=== PATIENT | female | born 1975 | race African-American/Black ===

== ENCOUNTER 2022-06-14 17:17 | Inpatient (IN) | payer OTHER ==
[2022-06-14 21:44] VITALS: BMI 25.7
[2022-06-14] MEDS ORDERED: LOPERAMIDE HCL 2 MG CAPSULE PO PRN (22:59)
[2022-06-14] MEDS ORDERED: guaiFENesin 200 MG/10 ML 10 ML UNIT-DOSE CUPS PO PRN (22:59)
[2022-06-14] MEDS ORDERED: MAGNESIUM CITRATE 300 ML BOTTLE PO PRN (22:59)
[2022-06-14] MEDS ORDERED: NICOTINE POLACRILEX 2 MG GUM BC PRN (22:59)
[2022-06-14] MEDS ORDERED: P-EPHED 60MG/TRIPROLIDI 2.5MG TABLET PO PRN (22:59)
[2022-06-14] MEDS ORDERED: MAG HYDROX/AL HYDROX/SIMETH 30 ML UNIT-DOSE CUP PO PRN (22:59)
[2022-06-15] MEDS: MELATONIN 5 MG TABLETS PO SCH ×2 (04:43→21:03)
[2022-06-15] MEDS: NICOTINE 14 MG/24 HOURS TOPICAL PATCH TD SCH (10:09)
[2022-06-15] MEDS: PRENATAL VITAMINS W/ FOLIC ACID TABLET (FP) PO SCH (10:09)
[2022-06-15] MEDS: hydrOXYzine PAMOATE 25 MG CAPSULE (FP) PO PRN (10:10)
[2022-06-15] MEDS ORDERED: methaDONE HCL 10 MG TABLET PO ONE (13:54)
[2022-06-15] MEDS ORDERED: methaDONE 40 MG, methaDONE 20 MG PO SCH (14:15)
[2022-06-15] MEDS ORDERED: TUBERCULIN PPD 5 TU/0.1ML VIAL ID ONE (16:33)
[2022-06-15] MEDS: QUEtiapine FUMARATE 100 MG TABLET (FP) PO SCH (21:03)
[2022-06-15] MEDS: THIAMINE HCL 100 MG TABLET (FP) PO SCH (21:03)
[2022-06-15 21:35] LABS: EPI CELLS 9 /uL (0-25.1); HYALINE CASTS 0 /uL (0-3.1); PH,URINE 7.5 (5.0-8.0); URINE APPEARANCE CLEAR; URINE BACTERIA 192 /uL (0-1359); URINE BILIRUBIN NEGATIVE (NEGATIVE); URINE COLOR YELLOW; URINE GLUCOSE (UA) NEGATIVE (NEGATIVE); URINE KETONE NEGATIVE (NEGATIVE); URINE LEUK ESTERASE TRACE (NEGATIVE); URINE NITRITE NEGATIVE (NEGATIVE); URINE PROTEIN NEGATIVE (NEGATIVE); URINE RBC 10 /uL (0-23.9); URINE UROBILINOGEN 0.2 mg/dL (0.2-1.0); URINE WBC 16 /uL (0-25.8)
[2022-06-16] MEDS ORDERED: methaDONE HCL 10 MG TABLET PO SCH (06:00)
[2022-06-16] MEDS: METHADONE PO SCH (06:58)
[2022-06-16] MEDS ORDERED: QUEtiapine FUMARATE 50 MG TABLET PO SCH (10:00)
[2022-06-16] MEDS: NICOTINE 14 MG/24 HOURS TOPICAL PATCH TD SCH (10:19)
[2022-06-16] MEDS: PRENATAL VITAMINS W/ FOLIC ACID TABLET (FP) PO SCH (10:19)
[2022-06-16] MEDS: hydrOXYzine PAMOATE 25 MG CAPSULE (FP) PO PRN (10:20)
[2022-06-16 11:00] LABS: HEMATOCRIT 33.3 % (32.4-45.2); HEMOGLOBIN 10.9 GM/dL (10.7-15.3); MCH 28.8 pg (25.7-33.7); MCHC 32.9 g/dl (32.0-36.0); MEAN CELL VOLUME 87.7 fl (80-96); MEAN PLT VOLUME 9.2 fl (7.5-11.1); PLATELET COUNT 191 10^3/uL (134-434); RBC 3.79 M/mm3 (3.60-5.2); RDW 14.6 % (11.6-15.6); WHITE BLOOD COUNT 5.1 K/mm3 (4.0-10.0)
[2022-06-16 11:18] LABS: ALBUMIN 3.5 g/dl (3.4-5.0); BLOOD UREA NITROGEN 10.8 mg/dL (7-18)
[2022-06-16 11:22] LABS: CREATININE 0.7 mg/dL (0.55-1.3)
[2022-06-16 11:24] LABS: BILIRUBIN,TOTAL 0.2 mg/dL (0.2-1); TOT PROT 6.7 g/dl (6.4-8.2)
[2022-06-16 11:31] LABS: SYPHILIS W/ RPR CONF NON-REACTIVE (NONREACTIVE)
[2022-06-16 11:59] LABS: HIV INTERPRETATION NEGATIVE (NEGATIVE)
[2022-06-16] MEDS ORDERED: PNEUMOC 20-VAL CONJ-DIP CRM/PF 0.5 ML SYRINGE IM ONE (12:00)
[2022-06-16] MEDS: IBUPROFEN 400 MG TABLET (FP) PO PRN (19:39)
[2022-06-16] MEDS: THIAMINE HCL 100 MG TABLET (FP) PO SCH (21:55)
[2022-06-16] MEDS: MELATONIN 5 MG TABLETS PO SCH (21:55)
[2022-06-16] MEDS: QUEtiapine FUMARATE 100 MG TABLET (FP) PO SCH (21:55)
[2022-06-17] MEDS: METHADONE PO SCH (06:15)
[2022-06-17] MEDS: PRENATAL VITAMINS W/ FOLIC ACID TABLET (FP) PO SCH (11:01)
[2022-06-17] MEDS: NICOTINE 14 MG/24 HOURS TOPICAL PATCH TD SCH (11:01)
[2022-06-17] MEDS: hydrOXYzine PAMOATE 25 MG CAPSULE (FP) PO PRN (11:02)
[2022-06-17] MEDS: MELATONIN 5 MG TABLETS PO SCH (21:34)
[2022-06-17] MEDS: THIAMINE HCL 100 MG TABLET (FP) PO SCH (21:34)
[2022-06-17] MEDS: QUEtiapine FUMARATE 100 MG TABLET (FP) PO SCH (21:34)
[2022-06-18] MEDS ORDERED: methaDONE 80 MG, methaDONE 20 MG PO SCH (06:00)
[2022-06-18] MEDS: NICOTINE 14 MG/24 HOURS TOPICAL PATCH TD SCH (10:44)
[2022-06-18] MEDS: PRENATAL VITAMINS W/ FOLIC ACID TABLET (FP) PO SCH (10:44)
[2022-06-18] MEDS: hydrOXYzine PAMOATE 25 MG CAPSULE (FP) PO PRN (10:46)
[2022-06-18] MEDS: QUEtiapine FUMARATE 200 MG TABLET PO SCH (21:20)
[2022-06-18] MEDS: MELATONIN 5 MG TABLETS PO SCH (21:20)
[2022-06-18] MEDS: THIAMINE HCL 100 MG TABLET (FP) PO SCH (21:20)
[2022-06-19] MEDS ORDERED: methaDONE HCL 40 MG DISPERSABLE TABLET PO SCH (06:00)
[2022-06-19] MEDS: methaDONE 40 MG, methaDONE 20 MG PO SCH (07:13)
[2022-06-19] MEDS: QUEtiapine FUMARATE 50 MG TABLET PO SCH (10:35)
[2022-06-19] MEDS: NICOTINE 14 MG/24 HOURS TOPICAL PATCH TD SCH (10:35)
[2022-06-19] MEDS: PRENATAL VITAMINS W/ FOLIC ACID TABLET (FP) PO SCH (10:35)
[2022-06-19] MEDS: MAGNESIUM HYDROX 2400MG/30ML ORAL SUSPENSION 30 ML CUP PO PRN (17:23)
[2022-06-19] MEDS: QUEtiapine FUMARATE 200 MG TABLET PO SCH (21:34)
[2022-06-19] MEDS: THIAMINE HCL 100 MG TABLET (FP) PO SCH (21:34)
[2022-06-19] MEDS: MELATONIN 5 MG TABLETS PO SCH (21:34)
[2022-06-20] MEDS: methaDONE 40 MG, methaDONE 20 MG PO SCH (06:25)
[2022-06-20] MEDS: PRENATAL VITAMINS W/ FOLIC ACID TABLET (FP) PO SCH (10:31)
[2022-06-20] MEDS: NICOTINE 14 MG/24 HOURS TOPICAL PATCH TD SCH (10:33)
[2022-06-20] MEDS: QUEtiapine FUMARATE 50 MG TABLET PO SCH (10:34)
[2022-06-20] MEDS ORDERED: BISACODYL 5 MG TABLET.DR (FP) PO ONE (20:35)
[2022-06-20] MEDS: MELATONIN 5 MG TABLETS PO SCH (21:51)
[2022-06-20] MEDS: THIAMINE HCL 100 MG TABLET (FP) PO SCH (21:51)
[2022-06-20] MEDS: QUEtiapine FUMARATE 200 MG TABLET PO SCH (21:51)
[2022-06-21] MEDS: methaDONE 40 MG, methaDONE 20 MG PO SCH (07:14)
[2022-06-21] MEDS: PRENATAL VITAMINS W/ FOLIC ACID TABLET (FP) PO SCH (10:37)
[2022-06-21] MEDS: NICOTINE 14 MG/24 HOURS TOPICAL PATCH TD SCH (10:37)
[2022-06-21] MEDS: QUEtiapine FUMARATE 50 MG TABLET PO SCH (10:37)
[2022-06-21] MEDS: MAGNESIUM HYDROX 2400MG/30ML ORAL SUSPENSION 30 ML CUP PO PRN (10:38)
[2022-06-21] MEDS: IBUPROFEN 400 MG TABLET (FP) PO PRN (12:04)
[2022-06-21] MEDS: THIAMINE HCL 100 MG TABLET (FP) PO SCH (21:18)
[2022-06-21] MEDS: QUEtiapine FUMARATE 200 MG TABLET PO SCH (21:19)
[2022-06-21] MEDS: MELATONIN 5 MG TABLETS PO SCH (21:19)
[2022-06-22] MEDS: methaDONE 40 MG, methaDONE 20 MG PO SCH (06:41)
[2022-06-22] MEDS: PRENATAL VITAMINS W/ FOLIC ACID TABLET (FP) PO SCH (10:23)
[2022-06-22] MEDS: NICOTINE 14 MG/24 HOURS TOPICAL PATCH TD SCH (10:24)
[2022-06-22] MEDS: QUEtiapine FUMARATE 50 MG TABLET PO SCH (10:25)
[2022-06-22] MEDS: THIAMINE HCL 100 MG TABLET (FP) PO SCH (21:37)
[2022-06-22] MEDS: MELATONIN 5 MG TABLETS PO SCH (21:37)
[2022-06-22] MEDS: QUEtiapine FUMARATE 200 MG TABLET PO SCH (21:37)
[2022-06-23] MEDS: methaDONE 40 MG, methaDONE 20 MG PO SCH (06:23)
[2022-06-23] MEDS: PRENATAL VITAMINS W/ FOLIC ACID TABLET (FP) PO SCH (11:13)
[2022-06-23] MEDS: hydrOXYzine PAMOATE 25 MG CAPSULE (FP) PO PRN (11:14)
[2022-06-23] MEDS: QUEtiapine FUMARATE 50 MG TABLET PO SCH (11:14)
[2022-06-23] MEDS: NICOTINE 14 MG/24 HOURS TOPICAL PATCH TD SCH (11:16)
[2022-06-23] MEDS: MAGNESIUM HYDROX 2400MG/30ML ORAL SUSPENSION 30 ML CUP PO PRN (15:36)
[2022-06-23] MEDS: MELATONIN 5 MG TABLETS PO SCH (21:30)
[2022-06-23] MEDS: QUEtiapine FUMARATE 200 MG TABLET PO SCH (21:30)
[2022-06-23] MEDS: THIAMINE HCL 100 MG TABLET (FP) PO SCH (21:30)
[2022-06-24] MEDS: methaDONE 40 MG, methaDONE 20 MG PO SCH (05:58)
[2022-06-24] MEDS: QUEtiapine FUMARATE 50 MG TABLET PO SCH (10:28)
[2022-06-24] MEDS: NICOTINE 14 MG/24 HOURS TOPICAL PATCH TD SCH (10:28)
[2022-06-24] MEDS: PRENATAL VITAMINS W/ FOLIC ACID TABLET (FP) PO SCH (10:28)
[2022-06-24] MEDS: MELATONIN 5 MG TABLETS PO SCH (21:51)
[2022-06-24] MEDS: QUEtiapine FUMARATE 300 MG TABLET PO SCH (21:52)
[2022-06-24] MEDS: THIAMINE HCL 100 MG TABLET (FP) PO SCH (21:52)
[2022-06-25] MEDS: methaDONE 40 MG, methaDONE 20 MG PO SCH (07:00)
[2022-06-25] MEDS: NICOTINE 14 MG/24 HOURS TOPICAL PATCH TD SCH (10:20)
[2022-06-25] MEDS: QUEtiapine FUMARATE 100 MG TABLET (FP) PO SCH (10:20)
[2022-06-25] MEDS: PRENATAL VITAMINS W/ FOLIC ACID TABLET (FP) PO SCH (10:20)
[2022-06-25] MEDS: NICOTINE 10 MG CARTRIDGE (INHALER) IH PRN (16:15)
[2022-06-25] MEDS: MELATONIN 5 MG TABLETS PO SCH (21:22)
[2022-06-25] MEDS: THIAMINE HCL 100 MG TABLET (FP) PO SCH (21:23)
[2022-06-25] MEDS: QUEtiapine FUMARATE 300 MG TABLET PO SCH (21:23)
[2022-06-26] MEDS: methaDONE 40 MG, methaDONE 20 MG PO SCH (06:14)
[2022-06-26] MEDS: QUEtiapine FUMARATE 100 MG TABLET (FP) PO SCH (10:39)
[2022-06-26] MEDS: PRENATAL VITAMINS W/ FOLIC ACID TABLET (FP) PO SCH (10:39)
[2022-06-26] MEDS: NICOTINE 14 MG/24 HOURS TOPICAL PATCH TD SCH (10:39)
[2022-06-26] MEDS: NICOTINE 10 MG CARTRIDGE (INHALER) IH PRN ×2 (10:40→14:53)
[2022-06-26] MEDS: hydrOXYzine PAMOATE 25 MG CAPSULE (FP) PO PRN (10:40)
[2022-06-26] MEDS ORDERED: DOCUSATE SODIUM 100 MG CAPSULE (FP) PO ONE (11:55)
[2022-06-26] MEDS: DOCUSATE SODIUM 100 MG CAPSULE (FP) PO SCH ×2 (13:07→22:15)
[2022-06-26] MEDS: THIAMINE HCL 100 MG TABLET (FP) PO SCH (22:15)
[2022-06-26] MEDS: QUEtiapine FUMARATE 300 MG TABLET PO SCH (22:15)
[2022-06-26] MEDS: MELATONIN 5 MG TABLETS PO SCH (22:16)
[2022-06-27] MEDS: DOCUSATE SODIUM 100 MG CAPSULE (FP) PO SCH ×3 (06:05→21:48)
[2022-06-27] MEDS: methaDONE 40 MG, methaDONE 20 MG PO SCH (06:05)
[2022-06-27] MEDS: QUEtiapine FUMARATE 100 MG TABLET (FP) PO SCH (10:42)
[2022-06-27] MEDS: ACETAMINOPHEN 325 MG TABLET (FP) PO PRN (10:42)
[2022-06-27] MEDS: hydrOXYzine PAMOATE 25 MG CAPSULE (FP) PO PRN (10:42)
[2022-06-27] MEDS: PRENATAL VITAMINS W/ FOLIC ACID TABLET (FP) PO SCH (10:42)
[2022-06-27] MEDS: NICOTINE 14 MG/24 HOURS TOPICAL PATCH TD SCH (10:43)
[2022-06-27] MEDS: NICOTINE 10 MG CARTRIDGE (INHALER) IH PRN ×3 (10:44→21:47)
[2022-06-27] MEDS: MELATONIN 5 MG TABLETS PO SCH (21:48)
[2022-06-27] MEDS: QUEtiapine FUMARATE 300 MG TABLET PO SCH (21:48)
[2022-06-27] MEDS: THIAMINE HCL 100 MG TABLET (FP) PO SCH (21:48)
[2022-06-28] MEDS: DOCUSATE SODIUM 100 MG CAPSULE (FP) PO SCH ×3 (06:55→21:45)
[2022-06-28] MEDS: methaDONE 40 MG, methaDONE 20 MG PO SCH (06:55)
[2022-06-28] MEDS: NICOTINE 14 MG/24 HOURS TOPICAL PATCH TD SCH (10:59)
[2022-06-28] MEDS: QUEtiapine FUMARATE 100 MG TABLET (FP) PO SCH (10:59)
[2022-06-28] MEDS: PRENATAL VITAMINS W/ FOLIC ACID TABLET (FP) PO SCH (10:59)
[2022-06-28] MEDS: NICOTINE 10 MG CARTRIDGE (INHALER) IH PRN ×2 (11:00→14:40)
[2022-06-28] MEDS: hydrOXYzine PAMOATE 25 MG CAPSULE (FP) PO PRN (11:01)
[2022-06-28] MEDS: METHOCARBAMOL 500 MG TABLET PO PRN (14:40)
[2022-06-28] MEDS: QUEtiapine FUMARATE 300 MG TABLET PO SCH (21:45)
[2022-06-28] MEDS: THIAMINE HCL 100 MG TABLET (FP) PO SCH (21:45)
[2022-06-28] MEDS: MELATONIN 5 MG TABLETS PO SCH (21:46)
[2022-06-29] MEDS: NICOTINE 10 MG CARTRIDGE (INHALER) IH PRN ×4 (06:09→21:59)
[2022-06-29] MEDS: methaDONE 40 MG, methaDONE 20 MG PO SCH (06:10)
[2022-06-29] MEDS: DOCUSATE SODIUM 100 MG CAPSULE (FP) PO SCH ×3 (06:11→21:59)
[2022-06-29] MEDS: PRENATAL VITAMINS W/ FOLIC ACID TABLET (FP) PO SCH (10:41)
[2022-06-29] MEDS: NICOTINE 14 MG/24 HOURS TOPICAL PATCH TD SCH (10:42)
[2022-06-29] MEDS: QUEtiapine FUMARATE 100 MG TABLET (FP) PO SCH (10:42)
[2022-06-29] MEDS: METHOCARBAMOL 500 MG TABLET PO PRN (12:03)
[2022-06-29] MEDS: IBUPROFEN 400 MG TABLET (FP) PO PRN (14:21)
[2022-06-29] MEDS: MELATONIN 5 MG TABLETS PO SCH (21:59)
[2022-06-29] MEDS: QUEtiapine FUMARATE 300 MG TABLET PO SCH (21:59)
[2022-06-29] MEDS: THIAMINE HCL 100 MG TABLET (FP) PO SCH (21:59)
[2022-06-29] MEDS: hydrOXYzine PAMOATE 25 MG CAPSULE (FP) PO PRN (21:59)
[2022-06-30] MEDS: DOCUSATE SODIUM 100 MG CAPSULE (FP) PO SCH ×3 (06:01→21:57)
[2022-06-30] MEDS: methaDONE 40 MG, methaDONE 20 MG PO SCH (06:01)
[2022-06-30 07:32] VITALS: RESP 18
[2022-06-30] MEDS: NICOTINE 14 MG/24 HOURS TOPICAL PATCH TD SCH (10:28)
[2022-06-30] MEDS: PRENATAL VITAMINS W/ FOLIC ACID TABLET (FP) PO SCH (10:28)
[2022-06-30] MEDS: QUEtiapine FUMARATE 100 MG TABLET (FP) PO SCH (10:28)
[2022-06-30] MEDS: NICOTINE 10 MG CARTRIDGE (INHALER) IH PRN ×3 (10:29→21:58)
[2022-06-30] MEDS: METHOCARBAMOL 500 MG TABLET PO PRN (10:29)
[2022-06-30] MEDS: ACETAMINOPHEN 325 MG TABLET (FP) PO PRN (21:57)
[2022-06-30] MEDS: QUEtiapine FUMARATE 300 MG TABLET PO SCH (21:57)
[2022-06-30] MEDS: THIAMINE HCL 100 MG TABLET (FP) PO SCH (21:57)
[2022-06-30] MEDS: MELATONIN 5 MG TABLETS PO SCH (21:58)
[2022-07-01] MEDS: DOCUSATE SODIUM 100 MG CAPSULE (FP) PO SCH ×3 (07:07→21:46)
[2022-07-01] MEDS: methaDONE 40 MG, methaDONE 20 MG PO SCH (07:07)
[2022-07-01] MEDS: PRENATAL VITAMINS W/ FOLIC ACID TABLET (FP) PO SCH (10:58)
[2022-07-01] MEDS: QUEtiapine FUMARATE 100 MG TABLET (FP) PO SCH (10:58)
[2022-07-01] MEDS: NICOTINE 14 MG/24 HOURS TOPICAL PATCH TD SCH (10:58)
[2022-07-01] MEDS: hydrOXYzine PAMOATE 25 MG CAPSULE (FP) PO PRN ×2 (10:59→21:46)
[2022-07-01] MEDS: METHOCARBAMOL 500 MG TABLET PO PRN (10:59)
[2022-07-01] MEDS: NICOTINE 10 MG CARTRIDGE (INHALER) IH PRN ×3 (10:59→20:16)
[2022-07-01] MEDS: MELATONIN 5 MG TABLETS PO SCH (21:46)
[2022-07-01] MEDS: QUEtiapine FUMARATE 300 MG TABLET PO SCH (21:46)
[2022-07-01] MEDS: THIAMINE HCL 100 MG TABLET (FP) PO SCH (21:46)
[2022-07-02] MEDS: DOCUSATE SODIUM 100 MG CAPSULE (FP) PO SCH ×3 (06:26→21:39)
[2022-07-02] MEDS: methaDONE 40 MG, methaDONE 20 MG PO SCH (06:26)
[2022-07-02] MEDS: PRENATAL VITAMINS W/ FOLIC ACID TABLET (FP) PO SCH (10:27)
[2022-07-02] MEDS: NICOTINE 14 MG/24 HOURS TOPICAL PATCH TD SCH (10:27)
[2022-07-02] MEDS: QUEtiapine FUMARATE 100 MG TABLET (FP) PO SCH (10:27)
[2022-07-02] MEDS: hydrOXYzine PAMOATE 25 MG CAPSULE (FP) PO PRN (10:28)
[2022-07-02] MEDS: METHOCARBAMOL 500 MG TABLET PO PRN (10:28)
[2022-07-02] MEDS: NICOTINE 10 MG CARTRIDGE (INHALER) IH PRN ×4 (10:29→20:15)
[2022-07-02] MEDS: QUEtiapine FUMARATE 300 MG TABLET PO SCH (21:39)
[2022-07-02] MEDS: MELATONIN 5 MG TABLETS PO SCH (21:39)
[2022-07-02] MEDS: THIAMINE HCL 100 MG TABLET (FP) PO SCH (21:40)
[2022-07-03] MEDS: methaDONE 40 MG, methaDONE 20 MG PO SCH (06:27)
[2022-07-03] MEDS: DOCUSATE SODIUM 100 MG CAPSULE (FP) PO SCH ×3 (06:27→21:38)
[2022-07-03] MEDS: NICOTINE 10 MG CARTRIDGE (INHALER) IH PRN ×4 (06:29→20:25)
[2022-07-03] MEDS: PRENATAL VITAMINS W/ FOLIC ACID TABLET (FP) PO SCH (10:53)
[2022-07-03] MEDS: NICOTINE 14 MG/24 HOURS TOPICAL PATCH TD SCH (10:53)
[2022-07-03] MEDS: QUEtiapine FUMARATE 100 MG TABLET (FP) PO SCH (10:53)
[2022-07-03] MEDS: METHOCARBAMOL 500 MG TABLET PO PRN ×2 (10:54→21:38)
[2022-07-03] MEDS: MAGNESIUM HYDROX 2400MG/30ML ORAL SUSPENSION 30 ML CUP PO PRN (14:35)
[2022-07-03] MEDS: THIAMINE HCL 100 MG TABLET (FP) PO SCH (21:38)
[2022-07-03] MEDS: MELATONIN 5 MG TABLETS PO SCH (21:38)
[2022-07-03] MEDS: QUEtiapine FUMARATE 300 MG TABLET PO SCH (21:38)
[2022-07-04] MEDS: methaDONE 40 MG, methaDONE 20 MG PO SCH (06:01)
[2022-07-04] MEDS: DOCUSATE SODIUM 100 MG CAPSULE (FP) PO SCH ×3 (06:01→21:51)
[2022-07-04] MEDS: NICOTINE 10 MG CARTRIDGE (INHALER) IH PRN ×5 (06:02→21:52)
[2022-07-04] MEDS: PRENATAL VITAMINS W/ FOLIC ACID TABLET (FP) PO SCH (10:25)
[2022-07-04] MEDS: NICOTINE 14 MG/24 HOURS TOPICAL PATCH TD SCH (10:26)
[2022-07-04] MEDS: QUEtiapine FUMARATE 100 MG TABLET (FP) PO SCH (10:26)
[2022-07-04] MEDS: METHOCARBAMOL 500 MG TABLET PO PRN (10:29)
[2022-07-04] MEDS: hydrOXYzine PAMOATE 25 MG CAPSULE (FP) PO PRN (10:29)
[2022-07-04] MEDS: MELATONIN 5 MG TABLETS PO SCH (21:52)
[2022-07-04] MEDS: THIAMINE HCL 100 MG TABLET (FP) PO SCH (21:52)
[2022-07-04] MEDS: QUEtiapine FUMARATE 300 MG TABLET PO SCH (21:52)
[2022-07-05] MEDS: methaDONE 40 MG, methaDONE 20 MG PO SCH (06:20)
[2022-07-05] MEDS: DOCUSATE SODIUM 100 MG CAPSULE (FP) PO SCH ×3 (06:21→21:50)
[2022-07-05] MEDS: NICOTINE 10 MG CARTRIDGE (INHALER) IH PRN ×5 (06:22→21:48)
[2022-07-05] MEDS: NICOTINE 14 MG/24 HOURS TOPICAL PATCH TD SCH (10:29)
[2022-07-05] MEDS: PRENATAL VITAMINS W/ FOLIC ACID TABLET (FP) PO SCH (10:29)
[2022-07-05] MEDS: QUEtiapine FUMARATE 100 MG TABLET (FP) PO SCH (10:29)
[2022-07-05] MEDS: METHOCARBAMOL 500 MG TABLET PO PRN ×2 (10:30→21:49)
[2022-07-05] MEDS: hydrOXYzine PAMOATE 25 MG CAPSULE (FP) PO PRN ×2 (10:31→21:50)
[2022-07-05] MEDS: QUEtiapine FUMARATE 300 MG TABLET PO SCH (21:49)
[2022-07-05] MEDS: THIAMINE HCL 100 MG TABLET (FP) PO SCH (21:49)
[2022-07-05] MEDS: MELATONIN 5 MG TABLETS PO SCH (21:51)
[2022-07-06] MEDS: methaDONE 40 MG, methaDONE 20 MG PO SCH (06:28)
[2022-07-06] MEDS: NICOTINE 10 MG CARTRIDGE (INHALER) IH PRN ×5 (06:29→22:05)
[2022-07-06] MEDS: DOCUSATE SODIUM 100 MG CAPSULE (FP) PO SCH ×3 (06:29→22:05)
[2022-07-06] MEDS: PRENATAL VITAMINS W/ FOLIC ACID TABLET (FP) PO SCH (10:26)
[2022-07-06] MEDS: NICOTINE 14 MG/24 HOURS TOPICAL PATCH TD SCH (10:26)
[2022-07-06] MEDS: QUEtiapine FUMARATE 100 MG TABLET (FP) PO SCH (10:27)
[2022-07-06] MEDS: MAGNESIUM HYDROX 2400MG/30ML ORAL SUSPENSION 30 ML CUP PO PRN (10:30)
[2022-07-06] MEDS: METHOCARBAMOL 500 MG TABLET PO PRN (10:30)
[2022-07-06] MEDS: hydrOXYzine PAMOATE 25 MG CAPSULE (FP) PO PRN ×2 (13:09→22:05)
[2022-07-06] MEDS: QUEtiapine FUMARATE 300 MG TABLET PO SCH (22:05)
[2022-07-06] MEDS: MELATONIN 5 MG TABLETS PO SCH (22:05)
[2022-07-06] MEDS: THIAMINE HCL 100 MG TABLET (FP) PO SCH (23:58)
[2022-07-07] MEDS: DOCUSATE SODIUM 100 MG CAPSULE (FP) PO SCH ×3 (06:26→21:50)
[2022-07-07] MEDS: methaDONE 40 MG, methaDONE 20 MG PO SCH (06:26)
[2022-07-07] MEDS: NICOTINE 10 MG CARTRIDGE (INHALER) IH PRN ×5 (06:27→21:50)
[2022-07-07] MEDS: NICOTINE 14 MG/24 HOURS TOPICAL PATCH TD SCH (10:07)
[2022-07-07] MEDS: PRENATAL VITAMINS W/ FOLIC ACID TABLET (FP) PO SCH (10:08)
[2022-07-07] MEDS: METHOCARBAMOL 500 MG TABLET PO PRN (10:09)
[2022-07-07] MEDS: QUEtiapine FUMARATE 100 MG TABLET (FP) PO SCH (10:09)
[2022-07-07] MEDS: hydrOXYzine PAMOATE 25 MG CAPSULE (FP) PO PRN ×2 (10:10→21:50)
[2022-07-07] MEDS: MELATONIN 5 MG TABLETS PO SCH (21:50)
[2022-07-07] MEDS: QUEtiapine FUMARATE 300 MG TABLET PO SCH (21:50)
[2022-07-07] MEDS: THIAMINE HCL 100 MG TABLET (FP) PO SCH (21:50)
[2022-07-08] MEDS: NICOTINE 10 MG CARTRIDGE (INHALER) IH PRN ×4 (05:39→22:17)
[2022-07-08] MEDS: methaDONE 40 MG, methaDONE 20 MG PO SCH (05:40)
[2022-07-08] MEDS: DOCUSATE SODIUM 100 MG CAPSULE (FP) PO SCH ×3 (05:40→21:50)
[2022-07-08] MEDS: QUEtiapine FUMARATE 100 MG TABLET (FP) PO SCH (10:09)
[2022-07-08] MEDS: PRENATAL VITAMINS W/ FOLIC ACID TABLET (FP) PO SCH (10:09)
[2022-07-08] MEDS: NICOTINE 14 MG/24 HOURS TOPICAL PATCH TD SCH (10:10)
[2022-07-08] MEDS: hydrOXYzine PAMOATE 25 MG CAPSULE (FP) PO PRN ×2 (10:10→21:50)
[2022-07-08] MEDS: METHOCARBAMOL 500 MG TABLET PO PRN (13:14)
[2022-07-08] MEDS: MELATONIN 5 MG TABLETS PO SCH (21:49)
[2022-07-08] MEDS: THIAMINE HCL 100 MG TABLET (FP) PO SCH (21:50)
[2022-07-08] MEDS: QUEtiapine FUMARATE 300 MG TABLET PO SCH (21:50)
[2022-07-09] MEDS: NICOTINE 10 MG CARTRIDGE (INHALER) IH PRN ×3 (06:09→20:01)
[2022-07-09] MEDS: DOCUSATE SODIUM 100 MG CAPSULE (FP) PO SCH ×3 (06:10→21:53)
[2022-07-09] MEDS: methaDONE 40 MG, methaDONE 20 MG PO SCH (06:10)
[2022-07-09] MEDS: PRENATAL VITAMINS W/ FOLIC ACID TABLET (FP) PO SCH (10:26)
[2022-07-09] MEDS: QUEtiapine FUMARATE 100 MG TABLET (FP) PO SCH (10:27)
[2022-07-09] MEDS: hydrOXYzine PAMOATE 25 MG CAPSULE (FP) PO PRN ×2 (10:27→21:53)
[2022-07-09] MEDS: NICOTINE 14 MG/24 HOURS TOPICAL PATCH TD SCH (10:27)
[2022-07-09] MEDS: METHOCARBAMOL 500 MG TABLET PO PRN ×2 (14:38→21:53)
[2022-07-09] MEDS: MELATONIN 5 MG TABLETS PO SCH (21:53)
[2022-07-09] MEDS: QUEtiapine FUMARATE 300 MG TABLET PO SCH (21:53)
[2022-07-09] MEDS: THIAMINE HCL 100 MG TABLET (FP) PO SCH (21:54)
[2022-07-10] MEDS ORDERED: methaDONE 40 MG, methaDONE 20 MG PO SCH (06:00)
[2022-07-10] MEDS: NICOTINE 10 MG CARTRIDGE (INHALER) IH PRN ×2 (06:54→09:13)
[2022-07-10] MEDS: DOCUSATE SODIUM 100 MG CAPSULE (FP) PO SCH (06:55)
[2022-07-10 08:00] VITALS: BP 105/62; PULSE 74; TEMP 98
[2022-07-10] MEDS: NICOTINE 14 MG/24 HOURS TOPICAL PATCH TD SCH (09:33)
[2022-07-10] MEDS: PRENATAL VITAMINS W/ FOLIC ACID TABLET (FP) PO SCH (09:33)
[2022-07-10] MEDS: hydrOXYzine PAMOATE 25 MG CAPSULE (FP) PO PRN (09:34)
[2022-07-10] MEDS: METHOCARBAMOL 500 MG TABLET PO PRN (09:34)
[2022-07-10] MEDS: QUEtiapine FUMARATE 100 MG TABLET (FP) PO SCH (09:34)
== END 2022-07-10 10:00 | disposition home or self-care (01) | DRG 772 ==
LOC: YASAS 17:17 → Y5N 06-15 01:39
PROVIDERS: ADMIT Surgery; ATTEND Psychiatry & Neurology Pain Medicine
PROC: HZ42ZZZ Group Counseling for Substance Abuse Treatment, Cognitive-Behavioral (ICD-10-PCS; principal; 2022-06-15)
DX: F14.20 Cocaine dependence, uncomplicated (principal); F11.20 Opioid dependence, uncomplicated; F12.20 Cannabis dependence, uncomplicated; F17.210 Nicotine dependence, cigarettes, uncomplicated; F31.9 Bipolar disorder, unspecified; F25.9 Schizoaffective disorder, unspecified; F19.282 Other psychoactive substance dependence with psychoactive substance-induced sleep disorder; G47.00 Insomnia, unspecified; K59.00 Constipation, unspecified; Z28.310 Unvaccinated for COVID-19; Z28.9 Immunization not carried out for unspecified reason; Z91.199 Patient's noncompliance with other medical treatment and regimen due to unspecified reason
CPT/HCPCS: 36415; 80053; 81003; 81025; 85027; 86780; 86803; 87086; 87389; 90677; 93005; 93010; C9803-CS; U0003; U0005

== ENCOUNTER 2023-02-11 11:24 | Inpatient (IN) | payer OTHER ==
[2023-02-11 12:12] VITALS: BMI 28.7
[2023-02-11] MEDS ORDERED: POLYETHYLENE GLYCOL (HEALTHYLAX) 3350 17 GM PACKET PO PRN (12:32)
[2023-02-11] MEDS ORDERED: ACETAMINOPHEN 325 MG TABLET (FP) PO PRN (12:32)
[2023-02-11] MEDS ORDERED: NALOXONE HCL 0.4 MG/ML VIAL IM PRN (12:32)
[2023-02-11] MEDS ORDERED: AMMONIUM LACTATE 12% LOTION 225 GM BOTTLE TP PRN (12:32)
[2023-02-11] MEDS ORDERED: guaiFENesin 600 MG TABLET.ER (FP) PO PRN (12:32)
[2023-02-11] MEDS ORDERED: IBUPROFEN 400 MG TABLET (FP) PO PRN (12:32)
[2023-02-11] MEDS ORDERED: NALOXONE HCL (KLOXXADO) 8 MG SPRAY NS PRN (12:32)
[2023-02-11] MEDS ORDERED: COLLOIDAL OATMEAL 1 BAR EACH TP PRN (12:32)
[2023-02-11] MEDS ORDERED: MAG HYDROX/AL HYDROX/SIMETH 30 ML UNIT-DOSE CUP PO PRN (12:32)
[2023-02-11] MEDS ORDERED: LOPERAMIDE HCL 2 MG CAPSULE PO PRN (12:32)
[2023-02-11] MEDS ORDERED: BENZONATATE 200 MG CAPSULE PO PRN (12:32)
[2023-02-11] MEDS ORDERED: BENZOCAINE/MENTHOL (CHLORASEPTIC ) LOZENGE MM PRN (12:32)
[2023-02-11] MEDS: NICOTINE 14 MG/24 HOURS TOPICAL PATCH TD SCH (13:45)
[2023-02-11] MEDS: methaDONE HCL 40 MG DISPERSABLE TABLET PO SCH (13:45)
[2023-02-11] MEDS: PRENATAL VITAMINS W/ FOLIC ACID TABLET (FP) PO SCH (13:47)
[2023-02-11 16:22] LABS: HEMATOCRIT 32.2 % (32.4-45.2); HEMOGLOBIN 10.7 GM/dL (10.7-15.3); MCH 28.7 pg (25.7-33.7); MCHC 33.2 g/dl (32.0-36.0); MEAN CELL VOLUME 86.6 fl (80-96); MEAN PLT VOLUME 9.2 fl (7.5-11.1); PLATELET COUNT 234 10^3/uL (134-434); RBC 3.72 M/mm3 (3.60-5.2)
[2023-02-11 16:23] LABS: POTASSIUM 3.9 mmol/L (3.5-5.1)
[2023-02-11 16:38] LABS: ALBUMIN 3.5 g/dl (3.4-5.0); CALCIUM 8.6 mg/dL (8.5-10.1)
[2023-02-11 16:39] LABS: BLOOD UREA NITROGEN 12.5 mg/dL (7-18)
[2023-02-11 16:41] LABS: CREATININE 0.7 mg/dL (0.55-1.3)
[2023-02-11 16:43] LABS: BILIRUBIN,TOTAL 0.2 mg/dL (0.2-1); TOT PROT 6.8 g/dl (6.4-8.2)
[2023-02-11 16:50] LABS: SYPHILIS W/ RPR CONF NON-REACTIVE (NONREACTIVE)
[2023-02-11] MEDS: QUEtiapine FUMARATE 300 MG TABLET PO SCH (21:11)
[2023-02-11] MEDS: SERTRALINE HCL 50 MG TABLET (FP) PO SCH (21:11)
[2023-02-11] MEDS: MELATONIN 5 MG TABLETS PO SCH (21:11)
[2023-02-11] MEDS: THIAMINE HCL 100 MG TABLET (FP) PO SCH (21:12)
[2023-02-12] MEDS: methaDONE HCL 40 MG DISPERSABLE TABLET PO SCH (07:07)
[2023-02-12] MEDS: ARIPiprazole 10 MG TABLET PO SCH (10:13)
[2023-02-12] MEDS: QUEtiapine FUMARATE 100 MG TABLET (FP) PO SCH (10:13)
[2023-02-12] MEDS: NICOTINE 14 MG/24 HOURS TOPICAL PATCH TD SCH (10:13)
[2023-02-12] MEDS: PRENATAL VITAMINS W/ FOLIC ACID TABLET (FP) PO SCH (10:13)
[2023-02-12] MEDS: QUEtiapine FUMARATE 300 MG TABLET PO SCH (21:31)
[2023-02-12] MEDS: SERTRALINE HCL 50 MG TABLET (FP) PO SCH (21:31)
[2023-02-12] MEDS: MELATONIN 5 MG TABLETS PO SCH (21:32)
[2023-02-12] MEDS: THIAMINE HCL 100 MG TABLET (FP) PO SCH (21:32)
[2023-02-13] MEDS: methaDONE HCL 40 MG DISPERSABLE TABLET PO SCH (06:51)
[2023-02-13] MEDS: PRENATAL VITAMINS W/ FOLIC ACID TABLET (FP) PO SCH (10:46)
[2023-02-13] MEDS: NICOTINE 14 MG/24 HOURS TOPICAL PATCH TD SCH (10:46)
[2023-02-13] MEDS: QUEtiapine FUMARATE 100 MG TABLET (FP) PO SCH (10:46)
[2023-02-13] MEDS: ARIPiprazole 10 MG TABLET PO SCH (10:46)
[2023-02-13] MEDS: MAGNESIUM HYDROX 2400MG/30ML ORAL SUSPENSION 30 ML CUP PO PRN (10:49)
[2023-02-13] MEDS: QUEtiapine FUMARATE 300 MG TABLET PO SCH (21:24)
[2023-02-13] MEDS: MELATONIN 5 MG TABLETS PO SCH (21:24)
[2023-02-13] MEDS: SERTRALINE HCL 50 MG TABLET (FP) PO SCH (21:24)
[2023-02-13] MEDS: THIAMINE HCL 100 MG TABLET (FP) PO SCH (21:25)
[2023-02-14] MEDS: methaDONE HCL 40 MG DISPERSABLE TABLET PO SCH (07:02)
[2023-02-14] MEDS: MAGNESIUM HYDROX 2400MG/30ML ORAL SUSPENSION 30 ML CUP PO PRN (09:50)
[2023-02-14] MEDS: QUEtiapine FUMARATE 100 MG TABLET (FP) PO SCH (09:50)
[2023-02-14] MEDS: PRENATAL VITAMINS W/ FOLIC ACID TABLET (FP) PO SCH (09:50)
[2023-02-14] MEDS: NICOTINE 14 MG/24 HOURS TOPICAL PATCH TD SCH (09:50)
[2023-02-14] MEDS: ARIPiprazole 10 MG TABLET PO SCH (09:50)
[2023-02-14] MEDS: THIAMINE HCL 100 MG TABLET (FP) PO SCH (21:37)
[2023-02-14] MEDS: MELATONIN 5 MG TABLETS PO SCH (21:37)
[2023-02-14] MEDS: SERTRALINE HCL 50 MG TABLET (FP) PO SCH (21:37)
[2023-02-14] MEDS: QUEtiapine FUMARATE 300 MG TABLET PO SCH (21:37)
[2023-02-15] MEDS: methaDONE HCL 40 MG DISPERSABLE TABLET PO SCH (07:16)
[2023-02-15] MEDS: PRENATAL VITAMINS W/ FOLIC ACID TABLET (FP) PO SCH (09:55)
[2023-02-15] MEDS: ARIPiprazole 10 MG TABLET PO SCH (09:55)
[2023-02-15] MEDS: QUEtiapine FUMARATE 100 MG TABLET (FP) PO SCH (09:55)
[2023-02-15] MEDS: NICOTINE 14 MG/24 HOURS TOPICAL PATCH TD SCH (09:57)
[2023-02-15] MEDS: IBUPROFEN 600 MG TABLET (FP) PO PRN (09:57)
[2023-02-15] MEDS: MELATONIN 5 MG TABLETS PO SCH (21:25)
[2023-02-15] MEDS: THIAMINE HCL 100 MG TABLET (FP) PO SCH (21:25)
[2023-02-15] MEDS: SERTRALINE HCL 50 MG TABLET (FP) PO SCH (21:25)
[2023-02-15] MEDS: QUEtiapine FUMARATE 300 MG TABLET PO SCH (21:25)
[2023-02-16] MEDS: methaDONE HCL 40 MG DISPERSABLE TABLET PO SCH (06:50)
[2023-02-16] MEDS: SERTRALINE HCL 50 MG TABLET (FP) PO SCH (09:20)
[2023-02-16] MEDS: PRENATAL VITAMINS W/ FOLIC ACID TABLET (FP) PO SCH (10:02)
[2023-02-16] MEDS: NICOTINE 14 MG/24 HOURS TOPICAL PATCH TD SCH (10:02)
[2023-02-16] MEDS: ARIPiprazole 10 MG TABLET PO SCH (10:02)
[2023-02-16] MEDS: QUEtiapine FUMARATE 100 MG TABLET (FP) PO SCH (10:02)
[2023-02-16] MEDS: QUEtiapine FUMARATE 300 MG TABLET PO SCH (21:18)
[2023-02-16] MEDS: MELATONIN 5 MG TABLETS PO SCH (21:18)
[2023-02-17] MEDS: methaDONE HCL 40 MG DISPERSABLE TABLET PO SCH (06:42)
[2023-02-17] MEDS: PRENATAL VITAMINS W/ FOLIC ACID TABLET (FP) PO SCH (10:21)
[2023-02-17] MEDS: QUEtiapine FUMARATE 100 MG TABLET (FP) PO SCH (10:21)
[2023-02-17] MEDS: ARIPiprazole 10 MG TABLET PO SCH (10:21)
[2023-02-17] MEDS: NICOTINE 14 MG/24 HOURS TOPICAL PATCH TD SCH (10:22)
[2023-02-17] MEDS: MAGNESIUM HYDROX 2400MG/30ML ORAL SUSPENSION 30 ML CUP PO PRN (10:24)
[2023-02-17] MEDS: SERTRALINE HCL 50 MG TABLET (FP) PO SCH (21:18)
[2023-02-17] MEDS: QUEtiapine FUMARATE 300 MG TABLET PO SCH (21:18)
[2023-02-17] MEDS: THIAMINE HCL 100 MG TABLET (FP) PO SCH (21:18)
[2023-02-17] MEDS: MELATONIN 5 MG TABLETS PO SCH (21:18)
[2023-02-18] MEDS: methaDONE HCL 40 MG DISPERSABLE TABLET PO SCH (07:09)
[2023-02-18] MEDS: ARIPiprazole 10 MG TABLET PO SCH (10:16)
[2023-02-18] MEDS: QUEtiapine FUMARATE 100 MG TABLET (FP) PO SCH (10:16)
[2023-02-18] MEDS: NICOTINE 14 MG/24 HOURS TOPICAL PATCH TD SCH (10:16)
[2023-02-18] MEDS: PRENATAL VITAMINS W/ FOLIC ACID TABLET (FP) PO SCH (10:16)
[2023-02-18] MEDS: THIAMINE HCL 100 MG TABLET (FP) PO SCH ×2 (10:34→21:33)
[2023-02-18 17:51] LABS: EPI CELLS >36 /uL (0-25.1); HYALINE CASTS 11 /uL (0-3.1); URINE APPEARANCE CLOUDY; URINE BACTERIA 188 /uL (0-1359); URINE BILIRUBIN NEGATIVE (NEGATIVE); URINE COLOR DK YELLOW; URINE GLUCOSE (UA) NEGATIVE (NEGATIVE); URINE KETONE TRACE (NEGATIVE); URINE LEUK ESTERASE 2+ (NEGATIVE); URINE NITRITE NEGATIVE (NEGATIVE); URINE PROTEIN TRACE (NEGATIVE); URINE UROBILINOGEN 0.2 mg/dL (0.2-1.0); URINE WBC 96 /uL (0-25.8)
[2023-02-18 18:26] LABS: URINE RBC 29 /uL (0-23.9)
[2023-02-18] MEDS: MELATONIN 5 MG TABLETS PO SCH (21:33)
[2023-02-18] MEDS: QUEtiapine FUMARATE 300 MG TABLET PO SCH (21:33)
[2023-02-18] MEDS: SERTRALINE HCL 50 MG TABLET (FP) PO SCH (21:33)
[2023-02-19] MEDS: methaDONE HCL 40 MG DISPERSABLE TABLET PO SCH (06:41)
[2023-02-19] MEDS: ARIPiprazole 10 MG TABLET PO SCH (09:39)
[2023-02-19] MEDS: QUEtiapine FUMARATE 100 MG TABLET (FP) PO SCH (09:39)
[2023-02-19] MEDS: NICOTINE 14 MG/24 HOURS TOPICAL PATCH TD SCH (09:39)
[2023-02-19] MEDS: PRENATAL VITAMINS W/ FOLIC ACID TABLET (FP) PO SCH (09:39)
[2023-02-19] MEDS: MELATONIN 5 MG TABLETS PO SCH (21:41)
[2023-02-19] MEDS: QUEtiapine FUMARATE 300 MG TABLET PO SCH (21:42)
[2023-02-19] MEDS: THIAMINE HCL 100 MG TABLET (FP) PO SCH (21:42)
[2023-02-19] MEDS: SERTRALINE HCL 50 MG TABLET (FP) PO SCH (21:42)
[2023-02-20] MEDS: methaDONE HCL 40 MG DISPERSABLE TABLET PO SCH (07:00)
[2023-02-20 08:00] VITALS: RESP 18
[2023-02-20] MEDS: NICOTINE 14 MG/24 HOURS TOPICAL PATCH TD SCH (10:00)
[2023-02-20] MEDS: ARIPiprazole 10 MG TABLET PO SCH (10:00)
[2023-02-20] MEDS: QUEtiapine FUMARATE 100 MG TABLET (FP) PO SCH (10:00)
[2023-02-20] MEDS: PRENATAL VITAMINS W/ FOLIC ACID TABLET (FP) PO SCH (10:00)
[2023-02-20] MEDS: MELATONIN 5 MG TABLETS PO SCH (21:06)
[2023-02-20] MEDS: QUEtiapine FUMARATE 300 MG TABLET PO SCH (21:07)
[2023-02-20] MEDS: SERTRALINE HCL 50 MG TABLET (FP) PO SCH (21:07)
[2023-02-20] MEDS: THIAMINE HCL 100 MG TABLET (FP) PO SCH (21:07)
[2023-02-21] MEDS: methaDONE HCL 40 MG DISPERSABLE TABLET PO SCH (06:55)
[2023-02-21] MEDS: ARIPiprazole 10 MG TABLET PO SCH (09:49)
[2023-02-21] MEDS: PRENATAL VITAMINS W/ FOLIC ACID TABLET (FP) PO SCH (09:49)
[2023-02-21] MEDS: QUEtiapine FUMARATE 100 MG TABLET (FP) PO SCH (09:49)
[2023-02-21] MEDS: NICOTINE 14 MG/24 HOURS TOPICAL PATCH TD SCH (09:49)
[2023-02-21] MEDS: SERTRALINE HCL 50 MG TABLET (FP) PO SCH (21:40)
[2023-02-21] MEDS: MELATONIN 5 MG TABLETS PO SCH (21:40)
[2023-02-21] MEDS: THIAMINE HCL 100 MG TABLET (FP) PO SCH (21:40)
[2023-02-21] MEDS: QUEtiapine FUMARATE 300 MG TABLET PO SCH (21:40)
[2023-02-22] MEDS: methaDONE HCL 40 MG DISPERSABLE TABLET PO SCH (07:08)
[2023-02-22] MEDS: PRENATAL VITAMINS W/ FOLIC ACID TABLET (FP) PO SCH (10:43)
[2023-02-22] MEDS: NICOTINE 14 MG/24 HOURS TOPICAL PATCH TD SCH (10:45)
[2023-02-22] MEDS: ARIPiprazole 10 MG TABLET PO SCH (10:45)
[2023-02-22] MEDS: QUEtiapine FUMARATE 100 MG TABLET (FP) PO SCH (10:45)
[2023-02-22] MEDS: IBUPROFEN 600 MG TABLET (FP) PO PRN (10:45)
[2023-02-22] MEDS: NICOTINE 10 MG CARTRIDGE (INHALER) IH PRN ×2 (12:55→18:24)
[2023-02-22] MEDS: MELATONIN 5 MG TABLETS PO SCH (21:32)
[2023-02-22] MEDS: QUEtiapine FUMARATE 300 MG TABLET PO SCH (21:32)
[2023-02-22] MEDS: THIAMINE HCL 100 MG TABLET (FP) PO SCH (21:32)
[2023-02-22] MEDS: SERTRALINE HCL 50 MG TABLET (FP) PO SCH (21:32)
[2023-02-23] MEDS: methaDONE HCL 40 MG DISPERSABLE TABLET PO SCH (06:37)
[2023-02-23] MEDS: PRENATAL VITAMINS W/ FOLIC ACID TABLET (FP) PO SCH (10:11)
[2023-02-23] MEDS: ARIPiprazole 10 MG TABLET PO SCH (10:11)
[2023-02-23] MEDS: QUEtiapine FUMARATE 100 MG TABLET (FP) PO SCH (10:11)
[2023-02-23] MEDS: NICOTINE 14 MG/24 HOURS TOPICAL PATCH TD SCH (10:12)
[2023-02-23] MEDS: NICOTINE 10 MG CARTRIDGE (INHALER) IH PRN ×3 (10:14→22:44)
[2023-02-23] MEDS: THIAMINE HCL 100 MG TABLET (FP) PO SCH (22:43)
[2023-02-23] MEDS: MELATONIN 5 MG TABLETS PO SCH (22:43)
[2023-02-23] MEDS: SERTRALINE HCL 50 MG TABLET (FP) PO SCH (22:43)
[2023-02-23] MEDS: QUEtiapine FUMARATE 300 MG TABLET PO SCH (22:43)
[2023-02-24] MEDS: methaDONE HCL 40 MG DISPERSABLE TABLET PO SCH (07:14)
[2023-02-24] MEDS: ARIPiprazole 10 MG TABLET PO SCH (09:37)
[2023-02-24] MEDS: PRENATAL VITAMINS W/ FOLIC ACID TABLET (FP) PO SCH (09:37)
[2023-02-24] MEDS: QUEtiapine FUMARATE 100 MG TABLET (FP) PO SCH (09:37)
[2023-02-24] MEDS: NICOTINE 10 MG CARTRIDGE (INHALER) IH PRN ×2 (09:38→21:09)
[2023-02-24] MEDS: NICOTINE 14 MG/24 HOURS TOPICAL PATCH TD SCH (09:39)
[2023-02-24] MEDS: hydrOXYzine PAMOATE 25 MG CAPSULE (FP) PO PRN ×2 (14:35→21:10)
[2023-02-24 17:54] LABS: HIV INTERPRETATION NEGATIVE (NEGATIVE)
[2023-02-24] MEDS: QUEtiapine FUMARATE 300 MG TABLET PO SCH (21:09)
[2023-02-24] MEDS: MELATONIN 5 MG TABLETS PO SCH (21:09)
[2023-02-24] MEDS: THIAMINE HCL 100 MG TABLET (FP) PO SCH (21:09)
[2023-02-24] MEDS: SERTRALINE HCL 50 MG TABLET (FP) PO SCH (21:10)
[2023-02-25] MEDS: methaDONE HCL 40 MG DISPERSABLE TABLET PO SCH (06:36)
[2023-02-25] MEDS: NICOTINE 10 MG CARTRIDGE (INHALER) IH PRN ×5 (06:38→21:37)
[2023-02-25] MEDS: NICOTINE 14 MG/24 HOURS TOPICAL PATCH TD SCH (09:48)
[2023-02-25] MEDS: PRENATAL VITAMINS W/ FOLIC ACID TABLET (FP) PO SCH (09:48)
[2023-02-25] MEDS: QUEtiapine FUMARATE 100 MG TABLET (FP) PO SCH (09:50)
[2023-02-25] MEDS: hydrOXYzine PAMOATE 25 MG CAPSULE (FP) PO PRN (09:50)
[2023-02-25] MEDS: ARIPiprazole 10 MG TABLET PO SCH (09:50)
[2023-02-25] MEDS: hydrOXYzine PAMOATE 50 MG CAPSULE (FP) PO PRN (16:52)
[2023-02-25] MEDS: THIAMINE HCL 100 MG TABLET (FP) PO SCH (21:35)
[2023-02-25] MEDS: MELATONIN 5 MG TABLETS PO SCH (21:35)
[2023-02-25] MEDS: SERTRALINE HCL 50 MG TABLET (FP) PO SCH (21:35)
[2023-02-25] MEDS: QUEtiapine FUMARATE 300 MG TABLET PO SCH (21:35)
[2023-02-26] MEDS ORDERED: methaDONE HCL 40 MG DISPERSABLE TABLET PO SCH (09:30)
[2023-02-26] MEDS: methaDONE HCL 40 MG DISPERSABLE TABLET PO SCH (09:35)
[2023-02-26] MEDS: PRENATAL VITAMINS W/ FOLIC ACID TABLET (FP) PO SCH (10:32)
[2023-02-26] MEDS: QUEtiapine FUMARATE 100 MG TABLET (FP) PO SCH (10:34)
[2023-02-26] MEDS: NICOTINE 14 MG/24 HOURS TOPICAL PATCH TD SCH (10:34)
[2023-02-26] MEDS: ARIPiprazole 10 MG TABLET PO SCH (10:34)
[2023-02-26] MEDS: NICOTINE 10 MG CARTRIDGE (INHALER) IH PRN ×2 (11:34→17:10)
[2023-02-26] MEDS: hydrOXYzine PAMOATE 50 MG CAPSULE (FP) PO PRN (17:12)
[2023-02-26] MEDS: QUEtiapine FUMARATE 300 MG TABLET PO SCH (21:06)
[2023-02-26] MEDS: MELATONIN 5 MG TABLETS PO SCH (21:06)
[2023-02-26] MEDS: THIAMINE HCL 100 MG TABLET (FP) PO SCH (21:07)
[2023-02-26] MEDS: SERTRALINE HCL 50 MG TABLET (FP) PO SCH (21:07)
[2023-02-27] MEDS: NICOTINE 10 MG CARTRIDGE (INHALER) IH PRN ×4 (00:12→16:08)
[2023-02-27] MEDS: methaDONE HCL 40 MG DISPERSABLE TABLET PO SCH (06:53)
[2023-02-27] MEDS ORDERED: metroNIDAZOLE 250 MG TABLET PO ONE (10:01)
[2023-02-27] MEDS: ARIPiprazole 10 MG TABLET PO SCH (10:32)
[2023-02-27] MEDS: PRENATAL VITAMINS W/ FOLIC ACID TABLET (FP) PO SCH (10:32)
[2023-02-27] MEDS: QUEtiapine FUMARATE 100 MG TABLET (FP) PO SCH (10:32)
[2023-02-27] MEDS: NICOTINE 14 MG/24 HOURS TOPICAL PATCH TD SCH (10:32)
[2023-02-27] MEDS: hydrOXYzine PAMOATE 50 MG CAPSULE (FP) PO PRN (12:30)
[2023-02-27] MEDS: SERTRALINE HCL 50 MG TABLET (FP) PO SCH (21:27)
[2023-02-27] MEDS: THIAMINE HCL 100 MG TABLET (FP) PO SCH (21:27)
[2023-02-27] MEDS: MELATONIN 5 MG TABLETS PO SCH (21:27)
[2023-02-27] MEDS: QUEtiapine FUMARATE 300 MG TABLET PO SCH (21:27)
[2023-02-28] MEDS: methaDONE HCL 40 MG DISPERSABLE TABLET PO SCH (06:53)
[2023-02-28] MEDS: NICOTINE 10 MG CARTRIDGE (INHALER) IH PRN ×4 (06:54→21:10)
[2023-02-28] MEDS: PRENATAL VITAMINS W/ FOLIC ACID TABLET (FP) PO SCH (10:30)
[2023-02-28] MEDS: QUEtiapine FUMARATE 100 MG TABLET (FP) PO SCH (10:30)
[2023-02-28] MEDS: ARIPiprazole 10 MG TABLET PO SCH (10:30)
[2023-02-28] MEDS: NICOTINE 14 MG/24 HOURS TOPICAL PATCH TD SCH (10:31)
[2023-02-28] MEDS: hydrOXYzine PAMOATE 50 MG CAPSULE (FP) PO PRN ×2 (12:43→21:11)
[2023-02-28] MEDS ORDERED: NICOTINE POLACRILEX 2 MG GUM BUC PRN (12:56)
[2023-02-28] MEDS: QUEtiapine FUMARATE 300 MG TABLET PO SCH (21:10)
[2023-02-28] MEDS: THIAMINE HCL 100 MG TABLET (FP) PO SCH (21:10)
[2023-02-28] MEDS: MELATONIN 5 MG TABLETS PO SCH (21:10)
[2023-02-28] MEDS: SERTRALINE HCL 50 MG TABLET (FP) PO SCH (21:10)
[2023-03-01] MEDS: methaDONE HCL 40 MG DISPERSABLE TABLET PO SCH (07:01)
[2023-03-01] MEDS: QUEtiapine FUMARATE 100 MG TABLET (FP) PO SCH (10:58)
[2023-03-01] MEDS: PRENATAL VITAMINS W/ FOLIC ACID TABLET (FP) PO SCH (10:58)
[2023-03-01] MEDS: NICOTINE 10 MG CARTRIDGE (INHALER) IH PRN ×2 (10:58→20:57)
[2023-03-01] MEDS: ARIPiprazole 10 MG TABLET PO SCH (10:58)
[2023-03-01] MEDS: NICOTINE POLACRILEX 4 MG GUM BUC PRN ×2 (13:33→20:57)
[2023-03-01] MEDS: hydrOXYzine PAMOATE 50 MG CAPSULE (FP) PO PRN (13:34)
[2023-03-01] MEDS: SERTRALINE HCL 50 MG TABLET (FP) PO SCH (21:41)
[2023-03-01] MEDS: QUEtiapine FUMARATE 300 MG TABLET PO SCH (21:41)
[2023-03-01] MEDS: MELATONIN 5 MG TABLETS PO SCH (21:41)
[2023-03-01] MEDS: THIAMINE HCL 100 MG TABLET (FP) PO SCH (21:41)
[2023-03-02] MEDS: NICOTINE 10 MG CARTRIDGE (INHALER) IH PRN ×3 (07:04→21:12)
[2023-03-02] MEDS: methaDONE HCL 40 MG DISPERSABLE TABLET PO SCH (07:04)
[2023-03-02] MEDS ORDERED: ARIPiprazole 5 MG TABLET ONE (08:36)
[2023-03-02] MEDS: SERTRALINE HCL 50 MG TABLET (FP) PO SCH (09:10)
[2023-03-02] MEDS: PRENATAL VITAMINS W/ FOLIC ACID TABLET (FP) PO SCH (09:43)
[2023-03-02] MEDS: QUEtiapine FUMARATE 100 MG TABLET (FP) PO SCH (09:44)
[2023-03-02] MEDS: ARIPiprazole 10 MG TABLET PO SCH (09:44)
[2023-03-02] MEDS: NICOTINE POLACRILEX 4 MG GUM BUC PRN ×3 (09:45→21:13)
[2023-03-02] MEDS: hydrOXYzine PAMOATE 50 MG CAPSULE (FP) PO PRN (12:12)
[2023-03-02] MEDS: MELATONIN 5 MG TABLETS PO SCH (21:11)
[2023-03-02] MEDS: QUEtiapine FUMARATE 300 MG TABLET PO SCH (21:11)
[2023-03-02] MEDS: THIAMINE HCL 100 MG TABLET (FP) PO SCH (21:54)
[2023-03-03] MEDS: methaDONE HCL 40 MG DISPERSABLE TABLET PO SCH (06:48)
[2023-03-03] MEDS: NICOTINE 10 MG CARTRIDGE (INHALER) IH PRN (07:04)
[2023-03-03 08:29] VITALS: BP 102/62; PULSE 73; TEMP 97.3
[2023-03-03] MEDS ORDERED: ARIPiprazole 5 MG TABLET ONE (09:13)
[2023-03-03] MEDS: PRENATAL VITAMINS W/ FOLIC ACID TABLET (FP) PO SCH (09:38)
[2023-03-03] MEDS: QUEtiapine FUMARATE 100 MG TABLET (FP) PO SCH (09:38)
[2023-03-03] MEDS: ARIPiprazole 10 MG TABLET PO SCH (09:39)
[2023-03-03] MEDS: NICOTINE POLACRILEX 4 MG GUM BUC PRN (09:51)
== END 2023-03-03 10:15 | disposition home or self-care (01) | DRG 772 ==
LOC: YASAS 11:24 → Y5N 12:50
PROVIDERS: ADMIT Allergy & Immunology; ATTEND Psychiatry & Neurology Pain Medicine
PROC: HZ42ZZZ Group Counseling for Substance Abuse Treatment, Cognitive-Behavioral (ICD-10-PCS; principal; 2023-02-11)
DX: F11.20 Opioid dependence, uncomplicated (principal); F14.20 Cocaine dependence, uncomplicated; F12.20 Cannabis dependence, uncomplicated; F17.210 Nicotine dependence, cigarettes, uncomplicated; F19.282 Other psychoactive substance dependence with psychoactive substance-induced sleep disorder; F31.9 Bipolar disorder, unspecified; F25.9 Schizoaffective disorder, unspecified; F19.24 Other psychoactive substance dependence with psychoactive substance-induced mood disorder; A59.01 Trichomonal vulvovaginitis; Z28.310 Unvaccinated for COVID-19; Z28.9 Immunization not carried out for unspecified reason
CPT/HCPCS: 36415; 80053; 81003; 81025; 85027; 86780; 86803; 87389; 87491; 87591; 87661; 87811; C9803-CS; U0003; U0005

== ENCOUNTER 2023-11-14 18:25 | Inpatient (IN) | payer OTHER ==
[2023-11-14 19:39] VITALS: BMI 26.6
[2023-11-14] MEDS ORDERED: BISMUTH SUBSALICYLATE 524 MG/30 ML PO PRN (21:15)
[2023-11-14] MEDS ORDERED: BENZOCAINE/MENTHOL (CHLORASEPTIC ) LOZENGE MM PRN (21:15)
[2023-11-14] MEDS ORDERED: IBUPROFEN 600 MG TABLET (FP) PO PRN (21:15)
[2023-11-14] MEDS ORDERED: NALOXONE HCL 0.4 MG/ML VIAL IM PRN (21:15)
[2023-11-14] MEDS ORDERED: DICYCLOMINE HCL 10 MG CAPSULE PO PRN (21:15)
[2023-11-14] MEDS ORDERED: ACETAMINOPHEN 325 MG TABLET (FP) PO PRN (21:15)
[2023-11-14] MEDS ORDERED: LOPERAMIDE HCL 2 MG CAPSULE PO PRN (21:15)
[2023-11-14] MEDS ORDERED: NICOTINE POLACRILEX 2 MG LOZENGE BC PRN (21:15)
[2023-11-14] MEDS ORDERED: guaiFENesin 600 MG TABLET.ER (FP) PO PRN (21:15)
[2023-11-14] MEDS ORDERED: IBUPROFEN 400 MG TABLET (FP) PO PRN (21:15)
[2023-11-14] MEDS ORDERED: MAG HYDROX/AL HYDROX/SIMETH 30 ML UNIT-DOSE CUP PO PRN (21:15)
[2023-11-14] MEDS ORDERED: BENZONATATE 200 MG CAPSULE PO PRN (21:15)
[2023-11-14] MEDS ORDERED: NALOXONE HCL (KLOXXADO) 8 MG SPRAY NS PRN (21:15)
[2023-11-14] MEDS ORDERED: POLYETHYLENE GLYCOL (HEALTHYLAX) 3350 17 GM PACKET PO PRN (21:15)
[2023-11-14] MEDS ORDERED: METHOCARBAMOL 500 MG TABLET PO PRN (21:15)
[2023-11-14] MEDS ORDERED: MAGNESIUM HYDROX 2400MG/30ML ORAL SUSPENSION 30 ML CUP PO PRN (21:15)
[2023-11-14] MEDS: THIAMINE HCL 100 MG TABLET (FP) PO SCH (23:00)
[2023-11-14] MEDS: MELATONIN 5 MG TABLETS PO SCH (23:00)
[2023-11-15] MEDS ORDERED: cloNIDine HCL 0.1 MG TABLET PO PRN (06:58)
[2023-11-15] MEDS: methaDONE HCL 10 MG TABLET (FOR DETOX USE ONLY) PO ONE ×2 (07:45→10:51)
[2023-11-15] MEDS: NICOTINE 14 MG/24 HOURS TOPICAL PATCH TD SCH (10:51)
[2023-11-15] MEDS: PRENATAL VITAMINS W/ FOLIC ACID TABLET (FP) PO SCH (10:51)
[2023-11-15 11:48] LABS: CHLORIDE 111 mmol/L (98-107); SODIUM 146 mmol/L (136-145)
[2023-11-15 11:50] LABS: CALCIUM 8.3 mg/dL (8.5-10.1)
[2023-11-15 11:51] LABS: ALBUMIN 2.8 g/dl (3.4-5.0); ANION GAP 6 mmol/L (4-13); BLOOD UREA NITROGEN 7.8 mg/dL (7-18); CO2 28 mmol/L (21-32); GLUCOSE,RANDOM 87 mg/dL (74-106)
[2023-11-15 11:54] LABS: CREATININE 0.6 mg/dL (0.55-1.3); SGOT/AST 11 U/L (15-37); SGPT/ALT 12 U/L (13-61)
[2023-11-15 11:55] LABS: HEMATOCRIT 30.4 % (32.4-45.2); HEMOGLOBIN 10.2 GM/dL (10.7-15.3); MCH 29.5 pg (25.7-33.7); MCHC 33.5 g/dl (32.0-36.0); MEAN CELL VOLUME 88.2 fl (80-96); MEAN PLT VOLUME 9.5 fl (7.5-11.1); PLATELET COUNT 226 10^3/uL (134-434); RBC 3.44 M/mm3 (3.60-5.2); RDW 15.2 % (11.6-15.6); WHITE BLOOD COUNT 4.3 K/mm3 (4.0-10.0)
[2023-11-15 11:56] LABS: BILIRUBIN,TOTAL 0.2 mg/dL (0.2-1); TOT PROT 5.9 g/dl (6.4-8.2)
[2023-11-15 11:57] LABS: ALK PHOS 48 U/L (45-117)
[2023-11-15] MEDS: QUEtiapine FUMARATE 100 MG TABLET (FP) PO ONE (12:46)
[2023-11-15] MEDS: QUEtiapine FUMARATE 300 MG TABLET PO SCH (22:38)
[2023-11-16] MEDS ORDERED: diazePAM 5 MG TABLET PO PRN (09:34)
[2023-11-16] MEDS: QUEtiapine FUMARATE 100 MG TABLET (FP) PO SCH (09:38)
[2023-11-17] MEDS: methaDONE HCL 10 MG TABLET (FOR DETOX USE ONLY) PO ONE (10:34)
[2023-11-19] MEDS: methaDONE HCL 10 MG TABLET (FOR DETOX USE ONLY) PO ONE (10:53)
[2023-11-20 09:47] VITALS: RESP 16
[2023-11-20 13:18] VITALS: BP 104/60; PULSE 72; TEMP 97.8
== END 2023-11-20 12:36 | disposition other institution (70) | DRG 773 ==
LOC: YASAS 18:25 → Y6N 22:43
PROVIDERS: ADMIT Allergy & Immunology; ATTEND Surgery
PROC: HZ2ZZZZ Detoxification Services for Substance Abuse Treatment (ICD-10-PCS; principal; 2023-11-14)
DX: F11.23 Opioid dependence with withdrawal (principal); F14.20 Cocaine dependence, uncomplicated; F12.20 Cannabis dependence, uncomplicated; F17.210 Nicotine dependence, cigarettes, uncomplicated; F25.1 Schizoaffective disorder, depressive type; Z28.310 Unvaccinated for COVID-19; Z28.9 Immunization not carried out for unspecified reason
CPT/HCPCS: 36415; 80053; 80305; 80307; 81025; 85027; 86780; 87635; 93005; 93010